=== PATIENT | male | born 1990 | race Caucasian/White ===

== ENCOUNTER 2020-09-21 04:17 | Emergency (ER) | payer SELFPAY ==
[~2020-09-21] VITALS: Ht 182.9 cm; Wt 106.0 kg
[2020-09-21 04:59] LABS: BASOPHILS % 0.3 % (0.0-2.0); EOSINOPHILS % 0.2 % (0.0-5.0); HEMATOCRIT. 47.9 % (42.0-52.0); HEMOGLOBIN. 15.9 g/dL (14.0-18.0); LYMPHOCYTES % 16.6 % (20.0-50.0); MEAN CORPUSCULAR HEMOGLOBIN 29.7 pg (28.0-32.0); MEAN CORPUSCULAR VOLUME 89.2 fL (80.0-94.0); MONOCYTES % 4.7 % (2.0-8.0); NEUTROPHILS % 78.2 % (40.0-76.0); PLATELET 367 x1000/uL (130-400); RED BLOOD CELL COUNT 5.37 mill/uL (4.7-6.1)
[2020-09-21 05:04] LABS: CHLORIDE 104 mEq/L (98-107)
[2020-09-21 05:07] LABS: ETHANOL BLOOD < 10 mg/dL
[2020-09-21 05:09] LABS: METHADONE URINE SCREEN NEGATIVE (NEGATIVE)
[2020-09-21 05:11] LABS: *AMPHETAMINES SCREEN URINE NEGATIVE (NEGATIVE); *BARBITURATES SCREEN URINE NEGATIVE (NEGATIVE); CANNABINOID URINE SCREEN NEGATIVE (NEGATIVE); OPIATES URINE SCREEN NEGATIVE (NEGATIVE); PHENCYCLIDINE URINE SCREEN NEGATIVE (NEGATIVE)
[2020-09-21] MEDS ORDERED: FAMOTIDINE 20MG/2ML VIAL IV STA (05:11)
[2020-09-21] MEDS ORDERED: ONDANSETRON HCL 4MG/2ML INJ IV STA (05:11)
[2020-09-21 05:12] LABS: *BENZODIAZEPINES SCREEN URINE NEGATIVE (NEGATIVE); *COCAINE SCREEN URINE NEGATIVE (NEGATIVE)
[2020-09-21] MEDS ORDERED: SODIUM CHLORIDE 0.9% 1,000 ML IV ONE (05:15)
[2020-09-21 07:00] VITALS: BP 117/70
== END 2020-09-21 07:19 | disposition home or self-care (01) ==
LOC: ER 04:17
DX: F41.9 Anxiety disorder, unspecified (principal)
CPT/HCPCS: 36415; 80053; 80305; 80320; 83690; 85025; 93005; 96361; 96374; 96375; 99284; J2405; J3490; J7030; G0480